=== PATIENT | male | born 1965 | race Two or more races ===

== ENCOUNTER → 2016-06-16 | Outpatient (CLI) | payer SELFPAY ==
[~2016-06-16] VITALS: Ht 193 cm; Wt 144.6 kg
[~2016-06-16] MED LIST: NYSTATIN 15 GM POWDER BOTTLE TP ONE; TRIA15OI6 TP
[2016-06-16 14:02] VITALS: BP 147/98
== END | disposition home or self-care (01) ==
LOC: HBOWC 13:04
PROVIDERS: ATTEND Emergency Medicine
DX: I87.2 Venous insufficiency (chronic) (peripheral) (principal); L97.821 Non-pressure chronic ulcer of other part of left lower leg limited to breakdown of skin; I10 Essential (primary) hypertension; J45.909 Unspecified asthma, uncomplicated; E66.9 Obesity, unspecified; M20.12 Hallux valgus (acquired), left foot
CPT/HCPCS: 87070; 87205; 97597; 97598

== ENCOUNTER → 2016-06-30 | Outpatient (CLI) | payer SELFPAY ==
[~2016-06-30] MED LIST changes: +CEPH500 PO; -NYSTATIN 15 GM POWDER BOTTLE TP ONE
[2016-06-30 14:42] VITALS: BP 124/86
== END | disposition home or self-care (01) ==
LOC: HBOWC 13:57
PROVIDERS: ATTEND Emergency Medicine
DX: I87.2 Venous insufficiency (chronic) (peripheral) (principal); L97.821 Non-pressure chronic ulcer of other part of left lower leg limited to breakdown of skin; M20.42 Other hammer toe(s) (acquired), left foot; M20.12 Hallux valgus (acquired), left foot; I10 Essential (primary) hypertension; J45.909 Unspecified asthma, uncomplicated; E66.9 Obesity, unspecified

== ENCOUNTER → 2016-07-14 | Outpatient (CLI) | payer SELFPAY ==
[~2016-07-14] MED LIST changes: +ASPI81 PO
[2016-07-14 13:59] VITALS: BP 151/92
== END | disposition home or self-care (01) ==
LOC: HBOWC 13:17
PROVIDERS: ATTEND Emergency Medicine
DX: I87.2 Venous insufficiency (chronic) (peripheral) (principal); L97.821 Non-pressure chronic ulcer of other part of left lower leg limited to breakdown of skin; I10 Essential (primary) hypertension; E66.9 Obesity, unspecified; J45.909 Unspecified asthma, uncomplicated; M20.42 Other hammer toe(s) (acquired), left foot; M20.12 Hallux valgus (acquired), left foot